=== PATIENT | female | born 1945 | race Caucasian/White ===

== ENCOUNTER 2018-10-02 10:49 | Day surgery (SDC) | payer MEDICARE, OTHER ==
[~2018-10-02 10:49] MED LIST: Midazolam 1 MG/ML 2 ML SDV ONE; Propofol 200 MG/20 ML SDV ONE
[2018-10-02] MEDS ORDERED: Lactated Ringers 1,000 ML IV SCH (11:00)
[2018-10-02] MEDS ORDERED: Sodium Chloride 0.9% 10 ML Syringe FLUSH PRN (11:00)
--- NOTE | 2018-10-02 11:24 | PCM.HPR ---
H & P Addendum review - H & P Addendum Review Date of Original H & P: 09/08/18 Date Reviewed: 10/02/18 Time Reviewed: 11:24 Patient was Examined: No Changes
[2018-10-02] MEDS ORDERED: Propofol 200 MG/20 ML SDV ONE (11:30)
[2018-10-02] MEDS ORDERED: Midazolam 1 MG/ML 2 ML SDV ONE (11:30)
--- NOTE | 2018-10-02 12:03 | PCM.OPNOTE ---
- General Post-Op/Procedure Note Date of Surgery/Procedure: 10/02/18 Operative Procedure(s): Colonoscopy with polypectomy Findings: 3 polyps Pre Op Diagnosis: FH Colon Ca Post-Op Diagnosis: Same Anesthesia Technique: MAC Primary Surgeon: Phoenix Trammell Anesthesia Provider: Samara YOO in mLs: 0 Complications: None Condition: Good
--- NOTE | 2018-10-03 09:21 | OR ---
Date of Procedure: 10/02/2018 PREOPERATIVE DIAGNOSIS: Family history of colon cancer. POSTOPERATIVE DIAGNOSIS: Colon polyps. PROCEDURE: Colonoscopy with polypectomy. ANESTHESIA: IV sedation. DESCRIPTION OF PROCEDURE: The patient was brought to the procedure room where she was placed on her left side and IV sedation administered. Digital rectal exam was performed which was normal. Colonoscope was inserted and advanced to the level of the cecum without difficulty. Prep was good and surfaces were well visualized. Cecal position was confirmed by identifying the appendiceal lumen and ileocecal valve. Upon withdrawing the scope, the ascending and transverse colon were normal. In the descending colon at 60 cm, was a 4 x 6 mm flat sessile polyp removed with a cautery snare and retrieved in the polyp trap. In the sigmoid colon, was a larger 8 mm semipedunculated polyp at 25 cm removed with a cautery snare and retrieved. Lastly, in the rectum at 8 cm, was a 6 mm pedunculated polyp removed with a cautery snare and retrieved. Retroflexion was normal. Air was removed and the scope withdrawn. The patient tolerated the procedure well and returned to Recovery in stable condition. The polyps appeared to be adenomatous and would recommend that she undergo a repeat colonoscopy in 3 years. If by chance they were hyperplastic, she could wait 5 years until her next colon screening. AGATHA BROWNE MD /[id number]
== END 2018-10-02 13:46 | disposition home or self-care (01) ==
LOC: LL.SDS 10:49
PROVIDERS: ATTEND Surgery
DX: Z12.11 Encounter for screening for malignant neoplasm of colon (principal); D12.4 Benign neoplasm of descending colon; D12.5 Benign neoplasm of sigmoid colon; D12.8 Benign neoplasm of rectum; I10 Essential (primary) hypertension; E78.00 Pure hypercholesterolemia, unspecified; E78.5 Hyperlipidemia, unspecified; R73.03 Prediabetes; Z79.899 Other long term (current) drug therapy; Z80.0 Family history of malignant neoplasm of digestive organs
CPT/HCPCS: 00812; J2250; J2704; J7120

== ENCOUNTER 2022-11-29 09:10 | Day surgery (SDC) | payer MEDICARE, OTHER ==
[2022-11-29] MEDS ORDERED: Sodium Chloride 0.9% 10 ML Syringe FLUSH PRN (09:15)
[2022-11-29] MEDS: Lactated Ringers 1,000 ML IV SCH (10:04)
== END 2022-11-29 11:53 | disposition home or self-care (01) ==
LOC: LL.SDS 09:10
PROVIDERS: ATTEND Surgery
DX: Z12.11 Encounter for screening for malignant neoplasm of colon (principal); D12.5 Benign neoplasm of sigmoid colon; D12.0 Benign neoplasm of cecum; I10 Essential (primary) hypertension; E78.00 Pure hypercholesterolemia, unspecified; Z79.899 Other long term (current) drug therapy; Z98.890 Other specified postprocedural states; Z90.710 Acquired absence of both cervix and uterus; Z98.51 Tubal ligation status; Z80.0 Family history of malignant neoplasm of digestive organs
CPT/HCPCS: 00812; J2250; J2704; J7120